=== PATIENT | male | born 1970 | race Caucasian/White ===

== ENCOUNTER 2017-03-17 11:00 | Emergency (ER) | payer SELFPAY ==
[~2017-03-17] VITALS: Ht 167.6 cm; Wt 81.6 kg
--- NOTE | 2017-03-17 11:02 | NUR ---
PT [facility] CC UNABLE TO SEE FROM LEFT EYE /BLURRY VISION X 2 DAYS. AWAITING MD ORDER
--- NOTE | 2017-03-17 11:20 | NUR ---
DR RUGGIERO AT BEDSIDE FOR EVAL
[2017-03-17] MEDS ORDERED: TETRAcaine 5 ML BOTTLE EACHEYE ONE (11:30)
[2017-03-17] MEDS ORDERED: AMLODIPINE BESYLATE 5 MG TABLET ONE (11:42)
--- NOTE | 2017-03-17 11:56 | NUR ---
Patient discharged to home in stable condition. Written and verbal after care instructions given. Patient verbalizes understanding of instruction. Patient was advised to go to [facility] for eye eval KALI. Patient and family states that they will directly go there now.
[2017-03-17] MEDS ORDERED: AMLODIPINE BESYLATE 5 MG TABLET PO ONE (12:00)
[2017-03-17 12:08] VITALS: BP 170/100
== END 2017-03-17 12:09 | disposition home or self-care (01) ==
LOC: ER 11:05
DX: H54.62 Unqualified visual loss, left eye, normal vision right eye (principal); I10 Essential (primary) hypertension
CPT/HCPCS: 99284; A4606; A6410; Z7610

== ENCOUNTER 2021-06-06 14:07 | Emergency (ER) | payer SELFPAY ==
[~2021-06-06] VITALS: Ht 170.2 cm; Wt 74.8 kg
[2021-06-06] MEDS ORDERED: HYDROMORPHONE 1 MG/1 ML DISP.SYRIN ONE (15:10)
[2021-06-06] MEDS ORDERED: PROPOFOL 40 ML IV ONE (15:26)
[2021-06-06] MEDS ORDERED: PROPOFOL 200 MG/20 ML VIAL IV ONE (15:30)
[2021-06-06] MEDS ORDERED: IV NS 0.9% 1,000 ML IV ONE (15:30)
[2021-06-06] MEDS ORDERED: HYDROMORPHONE 1 MG/1 ML DISP.SYRIN IV ONE (15:30)
[2021-06-06] MEDS ORDERED: IBUP-1955 PO (16:34)
--- NOTE | 2021-06-06 17:05 | NUR ---
PATIENT AWAKE AND ALERT, ORIENTED X4, SLING IN PLACED ON LEFT SHOULDER. Patient discharged to home in stable condition. Written and verbal after care instructions given. Patient verbalizes understanding of instruction. IV removed. Catheter intact and site benign. Pressure and 4x4 applied to site. No bleeding noted.
[2021-06-06 17:09] VITALS: BP 150/98
== END 2021-06-06 17:10 | disposition home or self-care (01) ==
LOC: ER 14:07
DX: S43.015A Anterior dislocation of left humerus, initial encounter (principal); I10 Essential (primary) hypertension; E11.9 Type 2 diabetes mellitus without complications; Z79.899 Other long term (current) drug therapy; W18.39XA Other fall on same level, initial encounter; Y93.89 Activity, other specified; Y92.89 Other specified places as the place of occurrence of the external cause; Y99.8 Other external cause status
CPT/HCPCS: 23650; 73030 ×2; 96361; 96374; 99152; 99285; J1170; J2704; J7030; G0500

== ENCOUNTER 2021-10-15 16:16 | Emergency (ER) | payer SELFPAY ==
[~2021-10-15] VITALS: Ht 170.2 cm; Wt 74.8 kg
[~2021-10-15 16:16] MED LIST: IBUP-1955 PO
--- NOTE | 2021-10-15 16:16 | NUR ---
PT [address]IB[address] C/O FOREHEAD TRAUMA S/P GLF WHILE ROLLER SKATING. PT IS AAOX4, NOT IN RESPIRATORY DISTRESS, V/S STABLE, KEPT RESTED AND COMFORTABLE. WILL CONTINUE TO MONITOR.
--- NOTE | 2021-10-15 17:31 | NUR ---
DR CHRIS AT BEDSIDE
[2021-10-15] MEDS ORDERED: IOHEXOL-350 100 ML VIAL IV ONE ×2 (17:52→18:58)
--- NOTE | 2021-10-15 17:54 | NUR ---
JEFF (FRIEND/BOSS) [phone]
[2021-10-15] MEDS ORDERED: IV NS 0.9% 1,000 ML BAG IV ONE (18:00)
[2021-10-15 18:23] LABS: BASOPHILS # (AUTO) 0.1 K/uL (0.0-0.2); BASOPHILS % (AUTO) 0.8 % (0.0-2.0); EOSINOPHILS % (AUTO) 0.6 % (0.0-6.0); HEMATOCRIT 41 % (39-51); HEMOGLOBIN 13.7 g/dL (13.5-17.5); LYMPHOCYTES # (AUTO) 1.7 K/uL (0.8-4.8); LYMPHOCYTES % (AUTO) 13.7 % (20.0-44.0); MEAN CORPUSCULAR HGB CONC 33 g/dl (31.0-36.0); MEAN CORPUSCULAR VOLUME 84 fL (80-96); MONOCYTES # (AUTO) 0.9 K/uL (0.1-1.30); MONOCYTES % (AUTO) 7.3 % (2.0-12.0); NEUTROPHILS # (AUTO) 9.7 K/uL (1.8-8.9); NEUTROPHILS % (AUTO) 77.6 % (43.0-81.0); PLATELET COUNT (AUTO) 361 K/uL (150-450); WHITE BLOOD COUNT (AUTO) 12.6 K/uL (4.3-11.0)
[2021-10-15 18:34] LABS: CALCIUM, SERUM 8.7 mg/dL (8.5-10.1); POTASSIUM 3.8 mmol/L (3.5-5.1)
[2021-10-15 18:40] LABS: ALBUMIN 3.4 g/dL (3.4-5.0); BILIRUBIN,DIRECT 0.1 mg/dL (0.0-0.2); BILIRUBIN,TOTAL 0.4 mg/dL (0.2-1.0); TOTAL PROTEIN, SERUM 7.1 g/dL (6.4-8.2)
--- NOTE | 2021-10-15 18:50 | NUR ---
PT IS WHEELED TO CT SCAN VIA [facility].
[2021-10-15] MEDS ORDERED: IV NS 0.9% 250 ML IV ONE (18:58)
--- NOTE | 2021-10-15 20:55 | NUR ---
Patient does not wish to proceed with medical care recommended by Dr. Martinez. Patient given information related to possible complications, up to and including , which could occur as a result of leaving the hospital at this time. Patient verbalizes understanding of risks involved due to leaving against medical advice. Patient has signed AMA form.
[2021-10-15 21:02] VITALS: BP 142/90
== END 2021-10-15 20:55 | disposition left against medical advice (07) ==
LOC: ER 16:23
DX: S09.90XA Unspecified injury of head, initial encounter (principal); G45.9 Transient cerebral ischemic attack, unspecified; R55 Syncope and collapse; I10 Essential (primary) hypertension; E11.9 Type 2 diabetes mellitus without complications; F32.9 Major depressive disorder, single episode, unspecified; F12.90 Cannabis use, unspecified, uncomplicated; V00.121A Fall from non-in-line roller-skates, initial encounter; Y93.89 Activity, other specified; Y92.89 Other specified places as the place of occurrence of the external cause; Y99.8 Other external cause status
CPT/HCPCS: 36415; 70450; 70496; 70498; 71045; 80048; 80076; 84484; 85025; 85730; 93005; 96360; 99285; J7030; J7050; Q9967 ×2

== ENCOUNTER 2024-10-04 08:03 | Emergency (ER) | payer MEDICAID ==
[~2024-10-04] VITALS: Ht 170.2 cm; Wt 62.1 kg
[2024-10-04] MEDS: FAMOTIDINE/PF INJ 20 MG/2 ML VIAL IV ONE (08:30)
[2024-10-04] MEDS: ONDANSETRON HCL/PF 4 MG/2 ML VIAL IVP ONE (08:30)
[2024-10-04] MEDS: MAG HYDROX/AL HYDROX/SIMETH 30 ML UDC PO ONE (08:30)
[2024-10-04 08:32] LABS: BASOPHILS # (AUTO) 0.1 K/uL (0.0-0.2); BASOPHILS % (AUTO) 0.6 % (0.0-2.0); EOSINOPHILS % (AUTO) 0.1 % (0.0-6.0); HEMATOCRIT 46 % (39-51); HEMOGLOBIN 15.7 g/dL (13.5-17.5); LYMPHOCYTES # (AUTO) 1.5 K/uL (0.8-4.8); LYMPHOCYTES % (AUTO) 6.6 % (20.0-44.0); MEAN CORPUSCULAR HEMOGLOBIN 27 PG (26.0-33.0); MEAN CORPUSCULAR HGB CONC 34 g/dl (31.0-36.0); MEAN CORPUSCULAR VOLUME 78 fL (80-96); MONOCYTES # (AUTO) 1.6 K/uL (0.1-1.30); NEUTROPHILS # (AUTO) 19.8 K/uL (1.8-8.9); NEUTROPHILS % (AUTO) 85.7 % (43.0-81.0); PLATELET COUNT (AUTO) 433 K/uL (150-450); RED CELL DISTRIBUTION WIDTH 14.4 % (11.5-15.0); WHITE BLOOD COUNT (AUTO) 23.1 K/uL (4.3-11.0)
[2024-10-04] MEDS ORDERED: ONDANSETRON HCL/PF 4 MG/2 ML VIAL ONE (08:38)
[2024-10-04] MEDS ORDERED: FAMOTIDINE/PF INJ 20 MG/2 ML VIAL IV ONE (08:39)
[2024-10-04] MEDS ORDERED: MAG HYDROX/AL HYDROX/SIMETH 30 ML UDC ONE (08:39)
[2024-10-04 08:57] LABS: ALBUMIN 2.9 g/dL (3.4-5.0); BILIRUBIN,DIRECT 0.1 mg/dL (0.0-0.2); BILIRUBIN,TOTAL 0.5 mg/dL (0.2-1.0); CREATININE 0.7 mg/dL (0.6-1.3); POTASSIUM 3.4 mmol/L (3.5-5.1); TOTAL PROTEIN, SERUM 7.4 g/dL (6.4-8.2)
[2024-10-04] MEDS: IV NS 0.9% 1,000 ML BAG IV ONE ×2 (09:30→11:00)
[2024-10-04 09:44] LABS: APPEARANCE,URINE CLEAR (CLEAR); BILIRUBIN,URINE NEGATIVE (NEGATIVE); BLOOD, URINE 1+ Ery/uL (NEGATIVE); COLOR,URINE YELLOW (YELLOW); KETONES,URINE 2+ mg/dL (NEGATIVE); LEUKOCYTE ESTERASE ,URINE NEGATIVE (NEGATIVE); NITRITE, URINE NEGATIVE (NEGATIVE); PROTEIN,URINE 2+ mg/dl (NEGATIVE); UGLUCOSE 3+ mg/dL (NEGATIVE); UROBILINOGEN,URINE 0.2 EU/dL (0.2)
[2024-10-04 09:49] LABS: ADD URINE CULTURE NO; BACTERIA,URINE Rare /HPF (None Seen); SQUAMOUS EPITHELIAL CELL,UR Few /HPF (None Seen)
[2024-10-04] MEDS ORDERED: MORPHINE SULFATE INJ 4 MG/ML DISP.SYRIN ONE (09:54)
[2024-10-04] MEDS: MORPHINE SULFATE INJ 2 MG/ML DISP.SYRIN IV ONE (09:56)
[2024-10-04] MEDS ORDERED: IOHEXOL-300 100 ML VIAL IV ONE (09:56)
[2024-10-04] MEDS ORDERED: IV NS 0.9% 250 ML IV ONE (09:58)
[2024-10-04] MEDS: PIPERACILLIN /TAZOBACTAM 3.375 G in IV D5W 50 ML IV ONE (11:00)
[2024-10-04] MEDS ORDERED: PIPERACI/TAZO 3.375GM/D5W 50ML PB IV ONE (11:02)
[2024-10-04] MEDS ORDERED: PANT40TA49 PO (12:53)
[2024-10-04] MEDS ORDERED: ONDA4TAB11 PO (12:53)
[2024-10-04] MEDS ORDERED: METF-440 PO (12:53)
[2024-10-04] MEDS ORDERED: CEPH500C2 PO (12:53)
[2024-10-04] MEDS ORDERED: KETOROLAC TROMETHAMINE 15 MG/ML VIAL ONE (14:09)
[2024-10-04] MEDS: KETOROLAC TROMETHAMINE 15 MG/ML VIAL IV ONE (14:14)
[2024-10-04 14:29] VITALS: BP 141/81; TEMP 98.3; O2SAT 100
== END 2024-10-04 14:29 | disposition home or self-care (01) ==
LOC: ER 08:03
DX: K85.90 Acute pancreatitis without necrosis or infection, unspecified (principal); E87.1 Hypo-osmolality and hyponatremia; E11.65 Type 2 diabetes mellitus with hyperglycemia; R10.13 Epigastric pain; F12.90 Cannabis use, unspecified, uncomplicated; F17.200 Nicotine dependence, unspecified, uncomplicated; I10 Essential (primary) hypertension; K21.9 Gastro-esophageal reflux disease without esophagitis; R00.0 Tachycardia, unspecified; Z87.19 Personal history of other diseases of the digestive system
CPT/HCPCS: 99285; 74177; 96374; 96375; 96361; 85025; 80048; 87040; 83605; 83690; 80076; 81001; 36415; 82962; J2270; J3490; J2405; J2543; J7030 ×2; J7050; Q9967; J1885; J7060